=== PATIENT | male | born 1990 | race Caucasian/White ===

== ENCOUNTER 2021-04-02 11:15 | Emergency (ER) | payer MEDICAID, SELFPAY ==
[2021-04-02 11:37] VITALS: BP 117/66; PULSE 70; RESP 17; TEMP -12.4; TEMP 9.7; O2SAT 98; BMI 31.6
[2021-04-02 11:47] VITALS: BP 117/66; PULSE 70; RESP 17; TEMP 36.5; O2SAT 98
--- NOTE | 2021-04-02 12:14 | HMH.EDUTC ---
[facility] [place] Dis[place] Clinical Impression: Scrotal abscess Disposition: Home, Self-Care Condition on Discharge: Good Instructions: Boil Additional Instructions: Keep the affected area clean and dry. Follow up with your regular doctor. Take the antibiotics as directed and apply the topical antibiotics as directed. Apply warm wet compresses to the affected area three or four times per day. GO TO THE ER FOR ANY WORSENING SYMPTOMS Prescriptions: Sulfamethoxazole/Trimethoprim [Bactrim DS tablet] 1 each PO BID 10 Days #20 tab Transmission Status: Received by [facility] Mupirocin [Bactroban 2% Ointment 22gm tube] 1 applicatio TP TID 7 Days #1 tube Transmission Status: Received by [facility] cephALEXin [cephALEXin 500mg capsule] 500 mg PO Q6H 10 Days #40 cap Transmission Status: Received by [facility] Referrals: Simone Srinivasan APRN [Primary Care Provider] - Time of Disposition: 12:19 Medical Decision Making - Medical Records Medical records reviewed: No: I reviewed the patient's medical records. - Waldemar Inquiry Pt receiving controlled substance: No Vital Signs: 04/02/21 11:37 04/02/21 11:47 Temperature 9.7 F L 97.7 F Temperature Source Oral Oral Pulse Rate 70 Pulse Rate [Left] 70 Respiratory Rate 17 17 Blood Pressure 117/66 Blood Pressure [Right Arm] 117/66 Blood Pressure Mean [Right Arm] 83 02 Sat by Pulse Oximetry 98 [facility] [place] HPI - General Stated complaint: knot on male area Time Seen by Provider: 04/02/21 12:14 Mode of Arrival: Ambulatory Source of Information: Patient Limitations: No Limitations Description of Symptoms (Recalled from Triage Doc. by RN): Pt states that he has a knoe in the middle of his testicles for 2 week that hurts. HEENT Symptoms (Recalled from RN notes): No Resp Symptoms (Recalled from RN notes): No Skin Symptoms (Recalled from RN notes): Yes MS Symptoms (Recalled from RN notes): No Functional Status (Recalled from RN notes): wnl - History of Present Illness Provider Complaint: He states that for the past 1 week he has had a red swollen area on the skin of his scrotum. He states that the pain is tender to touch. - Related Data Previous Rx's Medication Instructions Recorded Mupirocin [Bactroban 2% Ointment 1 applicatio TP TID 7 Days #1 tube 04/02/21 22gm tube] Sulfamethoxazole/Trimethoprim 1 each PO BID 10 Days #20 tab 04/02/21 [Bactrim DS tablet] cephALEXin [cephALEXin 500mg 500 mg PO Q6H 10 Days #40 cap 04/02/21 capsule] Allergies Allergy/AdvReac Type Severity Reaction Status Date / Time Codeine Allergy Intermediate NA-NAUSEA/V Uncoded 10/30/17 15:27 OMITING PCN (penicillin) Allergy Intermediate I-RASH Uncoded 10/30/17 15:27 ASA (aspirin) Allergy Mild I-RASH Uncoded 04/02/21 11:42 - Worker's Comp Is this a Worker's Comp case?: No [facility] History - Hepatitis A Screen Drug use history?: No High risk sexual behaviors?: No History of sexually transmitted infection?: No Currently employed?: No Childcare worker?: No Do you have indoor plumbing?: Yes Do you have electricity?: Yes Attestation statement:: This patient has been screened for Hepatitis A risk factors. I have reviewed the patient's past medical history: Yes - Social History Smoking Status: Current every day smoker Tobacco Type: cigarettes # Packs/Day (cigarettes): 1 Alcohol Intake: never Occupational Status: other ROS Obtained: Yes All systems reviewed & no additional complaints - Constitutional Constitutional: Reports system reviewed and no additional complaints, except as docu, Denies chills, Denies fever(s) - Eyes Eyes: Denies blurry vision, Denies change in vision, Denies eye discharge - ENT Ears, Nose, Mouth, and Throat: Denies dizziness, Denies sore throat - Genitourinary Male Genitourinary: Reports as per HPI - Musculoskeletal Musculoskeletal: Denies back pain - Integumentary/Breasts Skin/Breast: Reports as per
== END 2021-04-02 12:30 | disposition home or self-care (01) ==
PROVIDERS: Emergency Provider Nurse Practitioner Family; PCP Nurse Practitioner Family
DX: N49.2 Inflammatory disorders of scrotum (principal); F17.210 Nicotine dependence, cigarettes, uncomplicated
CPT/HCPCS: 99202; G0463

== ENCOUNTER 2021-04-17 21:25 | Emergency (ER) | payer MEDICAID, SELFPAY ==
[2021-04-17 21:27] VITALS: BP 129/74; PULSE 82; RESP 17; TEMP 37.1; O2SAT 98; BMI 31.4
[2021-04-17 21:41] VITALS: BMI 31.4
--- NOTE | 2021-04-17 21:41 | XR_ITS ---
PROCEDURE INFORMATION: Exam: XR Chest Exam date and time: 04/17/2021 9:41 PM Age: 30 years old Clinical indication: Cough and shortness of breath and other: Congestion; Patient HX: Cough, congestion, SOA, smoker; Additional info: Cough, chest congestion TECHNIQUE: Imaging protocol: XR of the chest. Views: 2 views. COMPARISON: No relevant prior studies available. FINDINGS: Lungs: Unremarkable. No consolidation. Pleural spaces: Unremarkable. No pleural effusion. No pneumothorax. Heart/Mediastinum: Unremarkable. No cardiomegaly. Bones/joints: Unremarkable. IMPRESSION: No acute findings.
[2021-04-17 22:00] VITALS: BP 156/86; PULSE 82; O2SAT 96
--- NOTE | 2021-04-17 22:10 | HMH.EDURI ---
ED Disposition Clinical Impression: Bronchitis Disposition: Home, Self-Care Condition on Discharge: Good Instructions: DI for Acute Bronchitis Additional Instructions: use meds and see pcp for follow up about bp Prescriptions: predniSONE [Prednisone 20mg Tab] 20 mg PO BID #10 tab Transmission Status: Pending to [facility] Azithromycin [Zithromax 250mg tab] 250 mg PO DIRECTED #6 tab Transmission Status: Pending to [facility] Referrals: Simone Srinivasan APRN [Primary Care Provider] - - Critical Care Critical Care Time: No Attestation: On 04/17/21, the high probability of a clinically significant, sudden or life threatening deterioration of the following system(s) required my full and direct attention, intervention and personal management. The time I documented below is in addition to time spent performing reported procedures but includes the following listed in this critical care notation. Medical Decision Making - Medical Records Medical records reviewed: Yes: I reviewed the patient's medical records. - Waldemar Inquiry Pt receiving controlled substance: No Vital Signs: 04/17/21 21:27 Temperature 98.7 F Temperature Source Oral Pulse Rate [Right] 82 Respiratory Rate 17 Blood Pressure [Right Arm] 129/74 Blood Pressure Mean [Right Arm] 92 Blood Pressure Source [Right Arm] Automatic Cuff 02 Sat by Pulse Oximetry 98 Oxygen Delivery Method Room Air - Lab Data Lab results reviewed: Yes: I reviewed the patient's lab results. Lab Results 04/17/21 22:15: Group A Strep Rapid Negative Orders (Tests/Meds): ED MEDICATIONS Discontinued Medications Generic Name Dose Route Start Last Admin Trade Name Edilbertoq PRN Reason Stop Dose Admin Ceftriaxone Sodium 1 gm 04/17/21 22:53 04/17/21 22:57 Ceftriaxone 1gm Vial IM 04/17/21 22:54 1 gm ONCE ONE Administration Protocol Lidocaine HCl 0 ml 04/17/21 22:53 04/17/21 22:57 Lidocaine 1% 5ml Pf Vial IM 04/17/21 22:54 2.1 ml ONCE ONE Administration Methylprednisolone Sodium Succinate 125 mg 04/17/21 22:53 04/17/21 22:58 Methylprednisolone Sod Succ 125mg Vial IM 04/17/21 22:54 125 mg ONCE ONE Administration ORDERS Category Date Time Status Full Resp Panel w/COVID ([facility]) Routine Lab 04/17/21 22:15 Received Strep Screen Confirmation Stat Micro 04/17/21 22:15 Received - Radiology Data #1 Image(s): Chest Image Reviewed: Yes I reviewed the patient's radiology image Preliminary Findings: Normal/NAD Medical Decision Narrative: has sinus and bronchitis - will use meds and asked pt to see pcp about htn URI/Sore Throat HPI - General Chief Complaint: Upper Respiratory Infection Stated Complaint: drainage,congestion,cough Time Seen by Provider: 04/17/21 21:50 Mode of Arrival: Family Vehicle Source of Information: Patient, Spouse, Medical Record Limitations: No Limitations Description of Symptoms (Recalled from ER Triage Doc. by RN): Pt c/o non-productive cough, chest congestion, sore throat, sinus drainage, and malaise that began 2 days ago. Pt initally thought it was allergies and has been taking benadryl without relief and the chest congestion seemed to worsen. Denies any fever, N/V/D, or SOA. - History of Present Illness HPI Narrative: over the last 2 day [facility] cough and chest and sinus congestion - no hx of diabetes - has hx of htn - positive tob use MD Complaint: nasal congestion, sinus pain Onset (ago): day(s) Severity: moderate Relieving factors: OTC cold medicine Able to tolerate fluids by mouth: Yes Associated symptoms: sore throat Treatments prior to arrival: cold medicine - Related Data Previous Rx's Medication Instructions Recorded Mupirocin [Bactroban 2% Ointment 1 applicatio TP TID 7 Days #1 tube 04/02/21 22gm tube] Sulfamethoxazole/Trimethoprim 1 each PO BID 10 Days #20 tab 04/02/21 [Bactrim DS tablet] cephALEXin [cephALEXin 500mg 500 mg PO Q
[2021-04-17 22:22] LABS: Adenovirus,PCR Not Detected (NotDetected); Bordetella Pertussis Not Detected (NotDetected); Chlamydophila Pneumoniae, PCR Not Detected (NotDetected); Coronavirus 19, PCR Not Detected (NotDetected); Coronavirus 229E Not Detected (NotDetected); Coronavirus NL63 Not Detected (NotDetected); Coronavirus OC43 Not Detected (NotDetected); Coronovirus HKU1,PCR Not Detected (NotDetected); Human Metapneumovirus Not Detected (NotDetected); Influenza A, PCR Not Detected (NotDetected); Influenza AH1, 2009 Not Detected (NotDetected); Influenza AH1, PCR Not Detected (NotDetected); Influenza AH3,PCR Not Detected (NotDetected); Influenza B, PCR Not Detected (NotDetected); Mycoplasma Pneumoniae, PCR Not Detected (NotDetected); Parainfluenza 1, PCR Not Detected (NotDetected); Parainfluenza 2, PCR Not Detected (NotDetected); Parainfluenza 3, PCR Not Detected (NotDetected); Parainfluenza 4, PCR Not Detected (NotDetected); Respiratory Syncytial Virus Not Detected (NotDetected)
[2021-04-17 22:34] LABS: Strep Scrn Group A (Rapid) Negative (Negative)
[2021-04-17 23:33] VITALS: BP 104/82; PULSE 73; RESP 15; TEMP 36.6; O2SAT 97
[2021-04-18 00:13] LABS: Rhinovirus/Enterovirus Detected (NotDetected)
== END 2021-04-17 23:35 | disposition home or self-care (01) ==
PROVIDERS: Emergency Provider Emergency Medicine; PCP Nurse Practitioner Family
DX: J20.9 Acute bronchitis, unspecified (principal); F17.210 Nicotine dependence, cigarettes, uncomplicated; Z88.0 Allergy status to penicillin
CPT/HCPCS: 71046; 87430; 87581; 87633; 87798; 96372; 99283

== ENCOUNTER → 2021-04-19 15:02 | Outpatient (CLI) | payer MEDICAID, SELFPAY ==
[2021-04-19 17:17] LABS: Amphetamine/Metha Screen,Urine Negative ng/ml (<1000)
[2021-04-19 17:18] LABS: Barbiturates Screen,Urine Negative ng/ml (<200); Benzodiazepines Screen,Urine Negative ng/ml (<200)
[2021-04-19 17:19] LABS: Cannabinoid Screen,Urine Positive ng/ml (<50)
[2021-04-19 17:20] LABS: Cocaine Screen,Urine Negative ng/ml (<300); Methadone Screen,Urine Negative ng/ml (<300)
[2021-04-19 17:21] LABS: Opiate Screen,Urine Negative ng/ml (<300)
[2021-04-19 17:22] LABS: Phencyclidine Screen,Urine Negative ng/ml (<25)
== END ==
PROVIDERS: Visit Provider Nurse Practitioner Family
DX: G62.9 Polyneuropathy, unspecified (principal); M54.9 Dorsalgia, unspecified
CPT/HCPCS: 80305

== ENCOUNTER → 2021-05-17 18:16 | Outpatient (CLI) | payer MEDICAID, SELFPAY ==
[2021-05-17 18:27] LABS: Basophils # 0.1 K/mm3 (0-0.2); Basophils % 0.7 % (0.1-2.0); Eosinophils # 0.1 K/mm3 (0.0-0.4); Eosinophils % 0.8 % (0.1-12.0); Hematocrit 47.6 % (42.0-52.0); Hemoglobin 16.5 g/dL (14.1-18.0); Lymphocytes # 2.8 K/mm3 (0.7-4.5); Lymphocytes % 27.9 % (10-50); Mean Corpuscular HGB Conc 34.6 g/dL (31.8-35.4); Mean Corpuscular Hemoglobin 31.8 pg (27.0-31.2); Mean Corpuscular Volume 91.8 fl (80-94); Mean Platelet Volume 10.5 fl (7.4-10.4); Monocytes # 0.4 K/mm3 (0.1-1.0); Monocytes % 3.9 % (1.7-9.3); Neutrophils # 6.6 K/mm3 (1.8-7.8); Neutrophils % 66.7 % (37.0-80.0); Platelet Count 251 K/mm3 (142-424); Red Blood Count 5.18 M/mm3 (4.60-6.20); Red Cell Distribution Width 13.9 % (11.5-17.5); White Blood Count 9.9 K/mm3 (4.8-10.8)
[2021-05-17 20:18] LABS: Chloride 107 mmol/L (98-107); Potassium 4.3 mmoL/L (3.5-5.1); Sodium 140 mmol/L (136-145)
[2021-05-17 20:21] LABS: Alanine Aminotransferase 23 U/L (12-78); Albumin Level 4.3 g/dl (3.5-5.0); Albumin/Globulin Ratio 1.5 (1.1-1.8); Alkaline Phosphatase 96 U/L (38-126); Anion Gap 11.3 mEq/L (5-15); Aspartate Amino Transferase 27 U/L (17-59); Bilirubin,Total 0.5 mg/dl (0.2-1.3); Blood Urea Nitrogen 13 mg/dl (9-20); Calcium 9.3 mg/dl (8.4-10.2); Carbon Dioxide 26 mmol/L (22.0-30.0); Chol/HDL Ratio 4.4 (1-3.5); Cholesterol 177 mg/dl (140-200); Estimated Glomerular Filt Rate 87 ml/min (>60); GFR (African American) 105 ML/MIN (>60); Globulin 2.9 g/dL (1.3-3.2); Glucose 85 mg/dl (74-100); HDL Cholesterol 40 mg/dl (40-60); Total Protein,Serum 7.2 g/dl (6.3-8.2); Triglycerides 164 mg/dl (30-150); VLDL Cholesterol 33 mg/dL (0-40)
[2021-05-17 20:33] LABS: Direct LDL Cholesterol 120.37 mg/dL (100-129)
[2021-05-17 20:38] LABS: T4 (Thyroxine) 8.2 ug/dl (5.53-11.0)
[2021-05-17 20:54] LABS: Thyroid Stimulating Hormone 0.68 uIU/mL (0.465-4.68)
[2021-05-17 21:19] LABS: 25-OH Vitamin D, Total 31.1 ng/mL (30-100)
== END ==
PROVIDERS: Visit Provider Nurse Practitioner Family
DX: G62.9 Polyneuropathy, unspecified (principal); E66.3 Overweight; Z68.31 Body mass index [BMI] 31.0-31.9, adult; Z79.899 Other long term (current) drug therapy
CPT/HCPCS: 80053; 80061; 82306; 84436; 84443; 85025

== ENCOUNTER 2021-05-21 12:32 | Emergency (ER) | payer MEDICAID, SELFPAY ==
[2021-05-21 12:35] VITALS: BP 128/72; PULSE 72; RESP 21; TEMP 36.8; O2SAT 98; BMI 33.0
--- NOTE | 2021-05-21 12:59 | HMH.EDUTC ---
[facility] [place] Clinical Impression: Nausea & vomiting Qualifiers: Vomiting type: unspecified Vomiting Intractability: non-intractable Qualified Code(s): R11.2 - Nausea with vomiting, unspecified Diarrhea Qualifiers: Diarrhea type: unspecified type Qualified Code(s): R19.7 - Diarrhea, unspecified Disposition: Home, Self-Care Condition on Discharge: Good Instructions: Nausea and Vomiting-Adult, Diarrhea Additional Instructions: Monitor temperature. Seek treatment if fever develops. Follow-up immediately if new or worse symptoms worsen or no noticeable improvement over 48 hours. Increase fluids such as water, Gatorade, Powerade, juice or Pedialyte with limited formula/dietary in children No food is okay as long as you are drinking. Once ready to eat start bland such as bananas, rice, applesauce, toast. Contagious until no diarrhea, vomiting, fever times 48 hours without medication Avoid antidiarrheals unless told otherwise. Best to let the virus run its course. Follow-up immediately for new or worsening symptoms or no noticeable improvement over the next 48 hours. Prescriptions: Promethazine HCl [Promethegan] 12.5 mg RC Q8 PRN 3 Days #6 supp.rect PRN Reason: Nausea Transmission Status: Pending to [facility] Referrals: Simone Srinivasan APRN [Primary Care Provider] - Time of Disposition: 13:55 Medical Decision Making - Waldemar Inquiry Pt receiving controlled substance: No Vital Signs: 05/21/21 12:35 05/21/21 13:43 Temperature 98.2 F 98.2 F Temperature Source Oral Pulse Rate 72 Pulse Rate [Right Brachial] 72 Respiratory Rate 21 21 Blood Pressure 128/72 Blood Pressure [Right Arm] 128/72 Blood Pressure Mean [Right Arm] 90 Blood Pressure Source [Right Arm] Automatic Cuff Blood Pressure Position [Right Arm] Sitting 02 Sat by Pulse Oximetry 98 Oxygen Delivery Method Room Air Orders (Tests/Meds): ED MEDICATIONS Discontinued Medications Generic Name Dose Route Start Last Admin Trade Name Freq PRN Reason Stop Dose Admin Promethazine HCl 12.5 mg 05/21/21 12:59 05/21/21 13:00 Promethazine Hcl 25mg/Ml 1ml Vial IM 05/21/21 13:00 12.5 mg ONCE ONE Administration Medical Decision Narrative: pt refused iv fluids and labs [facility] [place]PI - General Chief complaint: [facility] Stated complaint: N/V macario Time Seen by Provider: 05/21/21 12:59 Mode of Arrival: Ambulatory Source of Information: Patient Limitations: No Limitations Description of Symptoms (Recalled from Triage Doc. by RN): PATIENT C/O VOMITING AND DIARRHEA SINCE 0300 THIS AM HEENT Symptoms (Recalled from RN notes): No Resp Symptoms (Recalled from RN notes): No Skin Symptoms (Recalled from RN notes): No MS Symptoms (Recalled from RN notes): No Functional Status (Recalled from RN notes): WNL - History of Present Illness Provider Complaint: 30 yr old male presents for n/v/d since 3 am. pt states no ill family or no eating out recently. pt denies fever. - Related Data Previous Rx's Medication Instructions Recorded albuterol sulfate 1.25 mg/3 mL 1.25 mg INHALATION QID PRN #75 ml 04/19/21 solution for nebulization albuterol sulfate 90 mcg/actuation 2 puff INHALATION Q4-6H PRN #8.5 g 04/19/21 aerosol inhaler blood sugar diagnostic See Rx Instructions .ROUTE 04/19/21 .MEDSUPPLY #100 each blood-glucose meter See Rx Instructions .ROUTE 04/19/21 .MEDSUPPLY #1 each fluticasone 250 mcg-salmeterol 50 1 inh INHALATION BID #60 each 04/19/21 mcg/dose blistr powdr for inhalation hydrochlorothiazide 25 mg tablet 25 mg PO DAILY #30 tab 04/19/21 lancets 30 gauge and blood glucose See Rx Instructions .ROUTE 04/19/21 strips combo pack .MEDSUPPLY #50 each loratadine 10 mg tablet 10 mg PO DAILY PRN #30 tab 04/19/21 gabapentin 100 mg capsule 100 mg PO TID 30 Days #90 cap 05/17/21 lidocaine HCl 4 % topical patch 1 patch TOPICAL BID PRN #30 each 05/17/21 Promethazine HCl [Promethegan] 12.5 mg RC Q8 PRN 3 Days #6
[2021-05-21 13:43] VITALS: BP 128/72; PULSE 72; RESP 21; TEMP 36.8; O2SAT 98
== END 2021-05-21 14:00 | disposition home or self-care (01) ==
PROVIDERS: Emergency Provider Nurse Practitioner Family; PCP Nurse Practitioner Family
DX: R11.2 Nausea with vomiting, unspecified (principal); R19.7 Diarrhea, unspecified; I10 Essential (primary) hypertension; J45.909 Unspecified asthma, uncomplicated; Z88.0 Allergy status to penicillin
CPT/HCPCS: 96372; 99202; G0463

== ENCOUNTER 2021-05-23 00:49 | Emergency (ER) | payer MEDICAID, SELFPAY ==
[2021-05-23 00:51] VITALS: BP 113/66; PULSE 87; RESP 20; TEMP 37.1; O2SAT 97; BMI 31.6
--- NOTE | 2021-05-23 01:03 | ECG_ITS ---
APPROVED REPORT Exam: Resting ECG HR:80 bpm ECG Measurements Heart Rate 80 AXES KS 130 P 43 QRSd 98 QRS 33 QT 392 T 42 QTc 452 Conclusion Normal sinus rhythm Normal ECG Electronically signed by : Shun Montaño, 05/25/2021 21:43:04
[2021-05-23 01:11] VITALS: BP 113/66; PULSE 84; O2SAT 96
--- NOTE | 2021-05-23 01:14 | XR_ITS ---
PROCEDURE INFORMATION: Exam: XR Chest Exam date and time: 05/23/2021 1:14 AM Age: 30 years old Clinical indication: Shortness of breath; Sternal or substernal pain; Patient HX: SOA and some chest pain since receiving last covid shot last week TECHNIQUE: Imaging protocol: XR of the chest. Views: 2 views. COMPARISON: CR XR CHEST 2V 04/17/2021 9:36 PM FINDINGS: Lungs: Unremarkable. No consolidation. Pleural spaces: No pleural effusion. No pneumothorax. Heart/Mediastinum: Normal heart size. Bones/joints: Unremarkable. IMPRESSION: No acute findings.
[2021-05-23 01:25] VITALS: PULSE 83
[2021-05-23 01:26] VITALS: PULSE 81
[2021-05-23 01:31] VITALS: BP 116/59; PULSE 72; O2SAT 95
[2021-05-23 01:36] LABS: Basophils % 0.2 % (0.1-2.0); Eosinophils # 0.1 K/mm3 (0.0-0.4); Eosinophils % 0.3 % (0.1-12.0); Hematocrit 44.4 % (42.0-52.0); Hemoglobin 15.6 g/dL (14.1-18.0); Lymphocytes # 1.3 K/mm3 (0.7-4.5); Mean Corpuscular HGB Conc 35.1 g/dL (31.8-35.4); Mean Corpuscular Hemoglobin 31.6 pg (27.0-31.2); Mean Platelet Volume 8.8 fl (7.4-10.4); Monocytes # 0.5 K/mm3 (0.1-1.0); Monocytes % 3.3 % (1.7-9.3); Neutrophils # 13.9 K/mm3 (1.8-7.8); Neutrophils % 88.2 % (37.0-80.0); Platelet Count 237 K/mm3 (142-424); Red Blood Count 4.93 M/mm3 (4.60-6.20); Red Cell Distribution Width 13.7 % (11.5-17.5); White Blood Count 15.8 K/mm3 (4.8-10.8)
[2021-05-23 01:41] LABS: Alanine Aminotransferase 26 U/L (12-78); Albumin Level 4.1 g/dl (3.5-5.0); Albumin/Globulin Ratio 1.4 (1.1-1.8); Alkaline Phosphatase 90 U/L (38-126); Anion Gap 13.6 mEq/L (5-15); Aspartate Amino Transferase 25 U/L (17-59); Bilirubin,Total 0.4 mg/dl (0.2-1.3); Blood Urea Nitrogen 11 mg/dl (9-20); Calcium 8.7 mg/dl (8.4-10.2); Carbon Dioxide 25 mmol/L (22.0-30.0); Chloride 101 mmol/L (98-107); Creatinine Clearance Estimated 172 mL/min (50-200); Estimated Glomerular Filt Rate 98 ml/min (>60); GFR (African American) 118 ML/MIN (>60); Glucose 148 mg/dl (74-100); MANUAL DIFFERENTIAL MANUAL DIFFERENTIAL (MANUAL DIFF); Potassium 3.6 mmoL/L (3.5-5.1); Sodium 136 mmol/L (136-145); Total Protein,Serum 7.1 g/dl (6.3-8.2)
[2021-05-23 01:46] LABS: C-Reactive Protein 29.3 mg/L (0-4)
[2021-05-23 01:59] LABS: Procalcitonin 0.141 ng/mL (0.0-2.0)
[2021-05-23 02:01] LABS: Lymphocytes % 6 % (10-50); Monocytes % 1 % (2-9); Neutrophils % 89 % (42-76); Platelet Estimate Normal; RBC Morphology Normal; Total Cells Counted 100
[2021-05-23 02:02] LABS: Erythrocyte Sedimentation Rate 16 mm/hr (0-15)
[2021-05-23 02:09] LABS: Lactic Acid 2.9 mmol/L (0.7-2.1)
--- NOTE | 2021-05-23 02:09 | ECG_ITS ---
APPROVED REPORT Exam: Resting ECG HR:101 bpm ECG Measurements Heart Rate 101 AXES KS 134 P 60 QRSd 100 QRS 33 QT 380 T 51 QTc 492 Conclusion Sinus tachycardia Nonspecific T wave abnormality Abnormal ECG Electronically signed by : Shun Montaño, 05/25/2021 21:42:53
--- NOTE | 2021-05-23 03:52 | CT_ITS ---
PROCEDURE INFORMATION: Exam: CTA Chest With Contrast Exam date and time: 05/23/2021 3:52 AM Age: 30 years old Clinical indication: Shortness of breath; Patient HX: SOA and chest pain in the center of his chest since receiving his second dose of the covid shot last week, smoker TECHNIQUE: Imaging protocol: Computed tomographic angiography of the chest with contrast. 3D rendering (Not supervised by radiologist): MIP and/or 3D reconstructed images were created by the technologist. Radiation optimization: All CT scans at this facility use at least one of these dose optimization techniques: automated exposure control; mA and/or kV adjustment per patient size (includes targeted exams where dose is matched to clinical indication); or iterative reconstruction. Contrast material: ISO 370; Contrast volume: 70 ml; Contrast route: INTRAVENOUS (IV); COMPARISON: CR XR CHEST 2V 05/23/2021 1:14 AM FINDINGS: Pulmonary arteries: No pulmonary embolus. Aorta: The normal caliber of the thoracic aorta. No dissection. Lungs: Minimal dependent atelectasis. No consolidation or evidence of pneumonia. Calcified granuloma in the right lower lobe. Pleural spaces: Unremarkable. No pneumothorax. No pleural effusion. Heart: Normal heart size. Trace pericardial fluid without significant effusion. Lymph nodes: Calcified bilateral hilar lymph nodes. No enlarged mediastinal lymph nodes. There is a mildly enlarged left axillary lymph node measuring 1.1 cm in short axis, most likely reactive. Spleen: Spleen is mildly enlarged, measuring 13.7 cm in AP dimension. Bones/joints: Unremarkable. No acute fracture. Soft tissues: Unremarkable. IMPRESSION: 1. No evidence of pulmonary embolus. 2. No pneumonia. 3. Mild nonspecific splenomegaly. Probably reactive mildly enlarged left axillary lymph node.
--- NOTE | 2021-05-23 04:49 | HMH.EDSOB ---
ED Disposition Clinical Impression: Pleurisy Disposition: Left Against Medical Advice Condition on Discharge: Good Instructions: DI for Pleurisy Additional Instructions: fluids and see pcp and use meds Prescriptions: predniSONE [Prednisone 20mg Tab] 20 mg PO BID #10 tab Transmission Status: Pending to [facility] Benzonatate [Tessalon Perle 100mg Cap] 100 mg PO TID #30 cap Transmission Status: Pending to [facility] Azithromycin [Zithromax 250mg tab] 250 mg PO DIRECTED #6 tab Transmission Status: Pending to [facility] Referrals: Simone Srinivasan APRN [Primary Care Provider] - - Critical Care Critical Care Time: No Attestation: On 05/23/21, the high probability of a clinically significant, sudden or life threatening deterioration of the following system(s) required my full and direct attention, intervention and personal management. The time I documented below is in addition to time spent performing reported procedures but includes the following listed in this critical care notation. Medical Decision Making - Medical Records Medical records reviewed: Yes: I reviewed the patient's medical records. - Waldemar Inquiry Pt receiving controlled substance: No Vital Signs: 05/23/21 00:51 05/23/21 01:11 05/23/21 01:25 Temperature 98.7 F Temperature Source Oral Pulse Rate 84 83 Pulse Rate [Right] 87 Respiratory Rate 20 Blood Pressure 113/66 Blood Pressure [Right Arm] 113/66 Blood Pressure Mean [Right Arm] 81 02 Sat by Pulse Oximetry 97 96 Oxygen Delivery Method 05/23/21 01:26 05/23/21 01:31 05/23/21 04:57 Temperature 98.7 F Temperature Source Pulse Rate 81 72 74 Pulse Rate [Right] Respiratory Rate 16 Blood Pressure 116/59 L 120/79 Blood Pressure [Right Arm] Blood Pressure Mean [Right Arm] 02 Sat by Pulse Oximetry 95 Oxygen Delivery Method Room Air - Lab Data Lab results reviewed: Yes: I reviewed the patient's lab results. Lab Results 05/23/21 01:20: WBC 15.8 H, RBC 4.93, Hgb 15.6, Hct 44.4, MCV 90.0, MCH 31.6 H, MCHC 35.1, RDW 13.7, Plt Count 237, MPV 8.8, Neut % (Auto) 88.2 H, Lymph % (Auto) 8.0 L, [place] % (Auto) 3.3, Eos % (Auto) 0.3, Baso % (Auto) 0.2, Neut # (Auto) 13.9 H, Lymph # (Auto) 1.3, [place] # (Auto) 0.5, Eos # (Auto) 0.1, Baso # (Auto) 0.0, Total Counted 100, Neutrophils % (Manual) 89 H, Band Neutrophils % 4.0, Lymphocytes % (Manual) 6 L, Monocytes % (Manual) 1 L, Platelet Estimate Normal, RBC Morphology Normal, ESR 16 H 05/23/21 01:20: Sodium 136, Potassium 3.6, Chloride 101, Carbon Dioxide 25, Anion Gap 13.6, BUN 11, Creatinine 0.90, Estimated Creat Clear 172, Estimated GFR 98, Est GFR ( Amer) 118, Glucose 148 H, Calcium 8.7, Total Bilirubin 0.4, AST 25, ALT 26, Alkaline Phosphatase 90, C-Reactive Protein 29.3 H, Total Protein 7.1, Albumin 4.1, Globulin 3.0, Albumin/Globulin Ratio 1.4 05/23/21 01:20: Procalcitonin 0.141 05/23/21 01:20: Lactate 2.9 H Result diagrams: 05/23/21 01:20 05/23/21 01:20 Orders (Tests/Meds): ED MEDICATIONS Generic Name Dose Route Start Last Admin Trade Name Freq PRN Reason Stop Dose Admin Sodium Chloride 1,000 mls @ 999 mls/hr 05/23/21 01:15 05/23/21 01:22 Sod Chlor 0.9% 1000ml Bag IV 05/23/21 02:15 999 mls/hr .Q1H1M KWAN Administration Discontinued Medications Generic Name Dose Route Start Last Admin Trade Name Freq PRN Reason Stop Dose Admin Albuterol/Ipratropium 3 ml 05/23/21 01:14 05/23/21 01:25 Ipratropium/Albuterol 3 Ml Neb IH 05/23/21 01:15 3 ml ONCE ONE Administration Iopamidol 70 ml 05/23/21 04:13 05/23/21 04:14 Iopamidol-370 (76%);100ml Bottle IV 05/23/21 04:14 70 ml ONCE ONE Administration Ketorolac Tromethamine 30 mg 05/23/21 01:14 05/23/21 01:22 Ketorolac 30mg/Ml Vial IV 05/23/21 01:15 30 mg ONCE ONE Administration Methylprednisolone Sodium Succinate 125 mg 05/23/21 01:14 05/23/21 01:22 Methylprednisol
--- NOTE | 2021-05-23 04:56 | PC.NURSE ---
pt refused covid and full rep panel and signed out AMA
[2021-05-23 04:57] VITALS: BP 120/79; PULSE 74; RESP 16; TEMP 37.1; O2SAT 95
[2021-05-23 05:48] LABS: Reflex Lactic Add Lactic Reflex
== END 2021-05-23 05:09 | disposition left against medical advice (07) ==
PROVIDERS: Emergency Provider Emergency Medicine; PCP Nurse Practitioner Family
DX: R09.1 Pleurisy (principal); F17.210 Nicotine dependence, cigarettes, uncomplicated
CPT/HCPCS: 71046; 71275; 80053; 83605; 84145; 85007; 85025; 85651; 86140; 87040; 93005; 96365; 96375; 99283; Q9967

== ENCOUNTER 2021-07-08 11:39 | Emergency (ER) | payer MEDICAID, SELFPAY ==
[2021-07-08 12:40] VITALS: BP 124/82; PULSE 84; RESP 18; TEMP 36.7; O2SAT 99; BMI 30.4
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
[2021-07-08 14:29] VITALS: BP 124/82; PULSE 84; RESP 18; TEMP 36.7; O2SAT 99
== END 2021-07-08 14:30 | disposition home or self-care (01) ==
PROVIDERS: Emergency Provider Nurse Practitioner Family; PCP Nurse Practitioner Family
DX: B34.9 Viral infection, unspecified (principal); Z20.822 Contact with and (suspected) exposure to COVID-19; J45.901 Unspecified asthma with (acute) exacerbation; S50.11XA Contusion of right forearm, initial encounter
CPT/HCPCS: 73090; 99202; G0463

== ENCOUNTER 2021-07-24 14:54 | Emergency (ER) | payer MEDICAID, SELFPAY ==
[2021-07-24 14:55] VITALS: BP 149/87; PULSE 73; RESP 18; TEMP 36.7; O2SAT 98; BMI 25.1
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
[2021-07-24 16:15] VITALS: BP 115/72; PULSE 67; O2SAT 98
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
[2021-07-24 16:45] VITALS: BP 115/72; PULSE 65; O2SAT 100
[2021-07-24 17:00] VITALS: BP 115/72; PULSE 65; RESP 18; TEMP 36.7; O2SAT 100
== END 2021-07-24 17:09 | disposition home or self-care (01) ==
PROVIDERS: Emergency Provider Emergency Medicine; PCP Nurse Practitioner Family
DX: S00.83XA Contusion of other part of head, initial encounter (principal); S46.911A Strain of unspecified muscle, fascia and tendon at shoulder and upper arm level, right arm, initial encounter; S80.02XA Contusion of left knee, initial encounter; V43.63XA Car passenger injured in collision with pick-up truck in traffic accident, initial encounter; Y92.413 State road as the place of occurrence of the external cause
CPT/HCPCS: 70450; 71045; 72125; 73070; 73502; 73560; 99282

== ENCOUNTER 2021-07-25 16:19 | Emergency (ER) | payer MEDICAID, SELFPAY ==
[2021-07-25 16:20] VITALS: BP 118/80; PULSE 63; RESP 18; TEMP 36.4; O2SAT 96; BMI 31.4
[2021-07-25 16:28] VITALS: BMI 31.4
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
--- NOTE | 2021-07-25 16:29 | PC.NURSE ---
Went out and assessed pt and he complained of worsening headache since yesterday. Advises he has been getting dizzy and breaking out in a sweat;. Pt stable at this time sitting in w/c. Repeat head CT ordered and rad notified.
[2021-07-25 17:31] VITALS: BP 118/80; PULSE 62; O2SAT 98
[2021-07-25 18:01] VITALS: BP 117/74; PULSE 58; O2SAT 96
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
[2021-07-25 18:31] VITALS: BP 123/82; PULSE 61; O2SAT 100
[2021-07-25 19:04] VITALS: BP 123/82; PULSE 61; RESP 18; TEMP 36.4; O2SAT 98
== END 2021-07-25 19:05 | disposition home or self-care (01) ==
PROVIDERS: Emergency Provider Family Medicine; PCP Nurse Practitioner Family
DX: S06.0X0D Concussion without loss of consciousness, subsequent encounter (principal); R42 Dizziness and giddiness
CPT/HCPCS: 70450; 99282

== ENCOUNTER → 2021-07-26 19:04 | Outpatient (CLI) | payer MEDICAID, SELFPAY ==
[2021-07-26 20:33] LABS: Amphetamine/Metha Screen,Urine Negative ng/ml (<1000); Benzodiazepines Screen,Urine Negative ng/ml (<200)
[2021-07-26 20:34] LABS: Barbiturates Screen,Urine Negative ng/ml (<200)
[2021-07-26 20:35] LABS: Cannabinoid Screen,Urine Positive ng/ml (<50); Cocaine Screen,Urine Negative ng/ml (<300)
[2021-07-26 20:36] LABS: Methadone Screen,Urine Negative ng/ml (<300)
[2021-07-26 20:37] LABS: Opiate Screen,Urine Positive ng/ml (<300); Phencyclidine Screen,Urine Negative ng/ml (<25)
== END ==
PROVIDERS: Visit Provider Nurse Practitioner Family
DX: M54.9 Dorsalgia, unspecified (principal); S00.83XA Contusion of other part of head, initial encounter; S06.0X9A Concussion with loss of consciousness of unspecified duration, initial encounter; S46.911A Strain of unspecified muscle, fascia and tendon at shoulder and upper arm level, right arm, initial encounter; S80.02XA Contusion of left knee, initial encounter
CPT/HCPCS: 80305

== ENCOUNTER → 2021-09-01 16:39 | Outpatient (CLI) | payer MEDICAID, SELFPAY | PROVIDERS: Visit Provider Nurse Practitioner | DX: Z20.822 Contact with and (suspected) exposure to COVID-19 (principal) | CPT/HCPCS: C9803; U0003; U0005 ==

== ENCOUNTER 2021-09-07 21:15 | Emergency (ER) | payer MEDICAID, SELFPAY ==
[2021-09-07 21:17] VITALS: BP 120/70; PULSE 84; RESP 16; TEMP 37.2; O2SAT 97; BMI 31.4
[2021-09-07 21:39] LABS: Coronavirus 19, PCR Not Detected (NotDetected); Influenza A, PCR Not Detected (NotDetected); Influenza B, PCR Not Detected (NotDetected)
--- NOTE | 2021-09-07 21:40 | XR_ITS ---
PROCEDURE INFORMATION: Exam: XR Chest Exam date and time: 09/07/2021 9:40 PM Age: 30 years old Clinical indication: Patient HX: Sore throat per patient. ; Additional info: Cough' TECHNIQUE: Imaging protocol: XR of the chest. Views: 2 views. COMPARISON: CR XR CHEST PORTABLE 07/24/2021 3:43 PM FINDINGS: Lungs: Subtle interstitial haziness could reflect interstitial pneumonia. No consolidation. Pleural spaces: Unremarkable. No pleural effusion. No pneumothorax. Heart/Mediastinum: Unremarkable. No cardiomegaly. Bones/joints: Unremarkable. IMPRESSION: Subtle interstitial haziness could reflect interstitial pneumonia.
--- NOTE | 2021-09-07 21:50 | HMH.EDURI ---
ED Disposition Clinical Impression: Pharyngitis Qualifiers: Pharyngitis/tonsillitis etiology: unspecified etiology Qualified Code(s): J02.9 - Acute pharyngitis, unspecified Disposition: Home, Self-Care Condition on Discharge: Good Instructions: DI for Pharyngitis/Tonsillopharyngitis -- Adult Additional Instructions: use meds and gargle and change tooth brush - call pcp for follow up Prescriptions: predniSONE [Prednisone 20mg Tab] 20 mg PO BID #10 tab Transmission Status: Pending to [facility] Azithromycin [Zithromax 250mg tab] 250 mg PO DIRECTED #6 tab Transmission Status: Pending to [facility] Referrals: Simone Srinivasan APRN [Primary Care Provider] - - Critical Care Critical Care Time: No Attestation: On 09/07/21, the high probability of a clinically significant, sudden or life threatening deterioration of the following system(s) required my full and direct attention, intervention and personal management. The time I documented below is in addition to time spent performing reported procedures but includes the following listed in this critical care notation. Medical Decision Making - Medical Records Medical records reviewed: Yes: I reviewed the patient's medical records. - Waldemar Inquiry Pt receiving controlled substance: No Vital Signs: 09/07/21 21:17 Temperature 98.9 F Temperature Source Oral Pulse Rate [Left] 84 Respiratory Rate 16 Blood Pressure [Right Arm] 120/70 Blood Pressure Mean [Right Arm] 86 02 Sat by Pulse Oximetry 97 Oxygen Delivery Method Room Air - Lab Data Lab results reviewed: Yes: I reviewed the patient's lab results. Lab Results 09/07/21 21:30: Group A Strep Rapid Negative Orders (Tests/Meds): ORDERS Category Date Time Status Chest XR 2 view (NOT portable) [XR chest 2V] Stat Exams 09/07/21 21:40 Taken Rapid PCR Covid and Flu A/B Stat Lab 09/07/21 21:26 Received Strep Screen Confirmation Stat Micro 09/07/21 21:30 Received - Radiology Data #1 Image(s): Chest Image Reviewed: Yes I reviewed the patient's radiology image Preliminary Findings: Normal/NAD Medical Decision Narrative: use meds and see pcp for follow up URI/Sore Throat HPI - General Chief Complaint: Upper Respiratory Infection Stated Complaint: SICK--SORE THROAT.,EAR Time Seen by Provider: 09/07/21 21:30 Mode of Arrival: Ambulatory Source of Information: Patient, Medical Record Limitations: No Limitations Description of Symptoms (Recalled from ER Triage Doc. by RN): sore throat and feeling congested - History of Present Illness HPI Narrative: sore throat with no rash - started yesterday - uses tob Complaint: sore throat, nasal congestion Onset (ago): day(s) Severity: moderate Able to tolerate fluids by mouth: Yes Associated symptoms: denies other symptoms Treatments prior to arrival: acetaminophen, ibuprofen - Related Data Previous Rx's Medication Instructions Recorded albuterol sulfate 1.25 mg/3 mL 1.25 mg INHALATION QID PRN #75 ml 04/19/21 solution for nebulization albuterol sulfate 90 mcg/actuation 2 puff INHALATION Q4-6H PRN #8.5 g 04/19/21 aerosol inhaler blood sugar diagnostic See Rx Instructions .ROUTE 04/19/21 .MEDSUPPLY #100 each blood-glucose meter See Rx Instructions .ROUTE 04/19/21 .MEDSUPPLY #1 each hydrochlorothiazide 25 mg tablet 25 mg PO DAILY #30 tab 04/19/21 lancets 30 gauge and blood glucose See Rx Instructions .ROUTE 04/19/21 strips combo pack .MEDSUPPLY #50 each lidocaine HCl 4 % topical patch 1 patch TOPICAL BID PRN #30 each 05/17/21 fluticasone 250 mcg-salmeterol 50 1 inh INHALATION BID #60 each 06/22/21 mcg/dose blistr powdr for inhalation loratadine 10 mg tablet 10 mg PO DAILY PRN #30 tab 06/22/21 Albuterol Sulfate [Albuterol 2.5 mg IH Q6HP PRN 30 Days #120 ml 07/08/21 Sulfate 2.5mg/0.5ml Neb] Ondansetron [Zofran 4mg ODT] 4 mg PO TIDP PRN #10 tab 07/25/21 cyclobenzaprine 10 mg tablet 10 mg PO
[2021-09-07 21:56] LABS: Strep Scrn Group A (Rapid) Negative (Negative)
[2021-09-07 22:17] VITALS: BP 128/79; PULSE 77; RESP 16; TEMP 37.2; O2SAT 97
== END 2021-09-07 22:20 | disposition home or self-care (01) ==
PROVIDERS: Emergency Provider Emergency Medicine; PCP Nurse Practitioner Family
DX: J02.9 Acute pharyngitis, unspecified (principal); J45.909 Unspecified asthma, uncomplicated; I10 Essential (primary) hypertension; Z20.822 Contact with and (suspected) exposure to COVID-19
CPT/HCPCS: 71046; 87430; 99282; C9803; U0003; U0005

== ENCOUNTER 2021-09-20 00:31 | Emergency (ER) | payer MEDICAID, SELFPAY ==
[2021-09-20 00:32] VITALS: BP 132/92; PULSE 71; RESP 20; TEMP 36.6; O2SAT 99; BMI 31.4
--- NOTE | 2021-09-20 00:57 | XR_ITS ---
PROCEDURE INFORMATION: Exam: XR Chest Exam date and time: 09/20/2021 12:57 AM Age: 30 years old Clinical indication: Smoker's cough; Additional info: Cough, congestion TECHNIQUE: Imaging protocol: XR of the chest. Views: 2 views. COMPARISON: CR XR CHEST 2V 09/07/2021 9:37 PM FINDINGS: Lungs: Again noted is some minimal increased interstitial opacities bilaterally without focal airspace consolidation or pleural effusion. Pleural spaces: See Lungs finding. Heart/Mediastinum: Cardiac mediastinal silhouette is stable with no change in pulmonary vascularity. Bones/joints: Unremarkable. IMPRESSION: Continued mild interstitial opacities without focal airspace consolidation, pleural effusion or pneumothorax.
[2021-09-20 01:01] VITALS: BP 124/79; PULSE 69; O2SAT 98
[2021-09-20 01:05] LABS: Coronavirus 19, PCR Not Detected (NotDetected); Influenza A, PCR Not Detected (NotDetected); Influenza B, PCR Not Detected (NotDetected); Microscopic, Urine URINE MICROSCOPIC (MICROSCOPIC)
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
[2021-09-20 01:11] LABS: Basophils # 0.2 K/mm3 (0-0.2); Basophils % 1.3 % (0.1-2.0); Eosinophils # 0.2 K/mm3 (0.0-0.4); Eosinophils % 1.6 % (0.1-12.0); Hematocrit 51.8 % (42.0-52.0); Hemoglobin 17.4 g/dL (14.1-18.0); Lymphocytes % 34.9 % (10-50); Mean Corpuscular HGB Conc 33.5 g/dL (31.8-35.4); Mean Corpuscular Hemoglobin 32.3 pg (27.0-31.2); Mean Corpuscular Volume 96.6 fl (80-94); Mean Platelet Volume 9.9 fl (7.4-10.4); Monocytes # 0.6 K/mm3 (0.1-1.0); Monocytes % 4.8 % (1.7-9.3); Neutrophils # 6.5 K/mm3 (1.8-7.8); Neutrophils % 57.3 % (37.0-80.0); Platelet Count 257 K/mm3 (142-424); Red Blood Count 5.37 M/mm3 (4.60-6.20); White Blood Count 11.4 K/mm3 (4.8-10.8)
[2021-09-20 01:16] LABS: Chloride 102 mmol/L (98-107)
[2021-09-20 01:17] LABS: Potassium 3.8 mmoL/L (3.5-5.1); Sodium 139 mmol/L (136-145)
[2021-09-20 01:19] LABS: Alanine Aminotransferase 20 U/L (12-78); Aspartate Amino Transferase 25 U/L (17-59); Blood Urea Nitrogen 10 mg/dl (9-20); Creatinine Clearance Estimated 191 mL/min (50-200); Estimated Glomerular Filt Rate 112 ml/min (>60); GFR (African American) 136 ML/MIN (>60)
[2021-09-20 01:20] LABS: Albumin/Globulin Ratio 1.4 (1.1-1.8); Alkaline Phosphatase 97 U/L (38-126); Anion Gap 10.8 mEq/L (5-15); Bilirubin,Total 0.2 mg/dl (0.2-1.3); Calcium 8.9 mg/dl (8.4-10.2); Carbon Dioxide 30 mmol/L (22.0-30.0); Globulin 2.9 g/dL (1.3-3.2); Glucose 113 mg/dl (74-100); Magnesium 2.1 mg/dl (1.6-2.3); Total Protein,Serum 6.9 g/dl (6.3-8.2)
[2021-09-20 01:22] LABS: Appearance,Urine CLEAR (Clear); Bilirubin,Urine Negative (Negative); Blood, Urine Negative (Negative); Color,Urine YELLOW (Yellow); Glucose,Urine (UA) Negative (Negative); Ketones,Urine Negative (Negative); Leukocyte Esterase,Urine Negative (Negative); Nitrate,Urine Negative (Negative); PH,Urine 6.5 (5.0-8.5); Protein,Urine Negative (Negative); Specific Gravity, Urine 1.025 (1.005-1.030); Urobilinogen,Urine 0.2 EU/dl (0.2)
[2021-09-20 01:25] LABS: C-Reactive Protein 1.3 mg/L (0-4)
[2021-09-20 01:30] VITALS: BP 126/75; PULSE 63; O2SAT 96
[2021-09-20 01:56] LABS: Troponin I < 0.01 ng/ml (0.00-0.034)
[2021-09-20 01:58] LABS: Bacteria,Urine Trace /lpf; WBC,Urine Occasional #/hpf (0-3)
[2021-09-20 02:00] LABS: Erythrocyte Sedimentation Rate 5 mm/hr (0-15); Procalcitonin 0.043 ng/mL (0.0-2.0)
--- NOTE | 2021-09-20 02:12 | PC.NURSE ---
called supervisor decorating for bed assignment
[2021-09-20 02:37] VITALS: BP 129/78; PULSE 69; RESP 18; TEMP 36.7; O2SAT 100
== END 2021-09-20 02:44 | disposition home or self-care (01) ==
PROVIDERS: Emergency Provider Emergency Medicine; PCP Nurse Practitioner Family
DX: J45.41 Moderate persistent asthma with (acute) exacerbation (principal); I10 Essential (primary) hypertension; Z20.822 Contact with and (suspected) exposure to COVID-19; F17.210 Nicotine dependence, cigarettes, uncomplicated
CPT/HCPCS: 71046; 80053; 81001; 83735; 84145; 84484; 85025; 85651; 86140; 96365; 99283; C9803; U0003; U0005

== ENCOUNTER 2021-11-18 22:39 | Emergency (ER) | payer MEDICAID, SELFPAY ==
[2021-11-18 22:41] VITALS: BP 143/94; PULSE 81; RESP 16; TEMP 36.9; O2SAT 98; BMI 29.1
[2021-11-18 22:48] VITALS: BMI 28.7
[2021-11-18 23:04] LABS: Coronavirus 19, PCR Not Detected (NotDetected); Influenza A, PCR Not Detected (NotDetected); Influenza B, PCR Not Detected (NotDetected)
[2021-11-18 23:15] LABS: Lactic Acid 1.4 mmol/L (0.7-2.1)
[2021-11-18 23:16] LABS: Alanine Aminotransferase 18 U/L (12-78); Albumin Level 4.4 g/dl (3.5-5.0); Albumin/Globulin Ratio 1.3 (1.1-1.8); Alkaline Phosphatase 93 U/L (38-126); Anion Gap 7.7 mEq/L (5-15); Aspartate Amino Transferase 22 U/L (17-59); Bilirubin,Total 0.5 mg/dl (0.2-1.3); Blood Urea Nitrogen 8 mg/dl (9-20); Calcium 9.5 mg/dl (8.4-10.2); Carbon Dioxide 36 mmol/L (22.0-30.0); Chloride 98 mmol/L (98-107); Creatinine Clearance Estimated 136 mL/min (50-200); Estimated Glomerular Filt Rate 87 ml/min (>60); GFR (African American) 105 ML/MIN (>60); Globulin 3.3 g/dL (1.3-3.2); Glucose 97 mg/dl (74-100); Potassium 3.7 mmoL/L (3.5-5.1); Sodium 138 mmol/L (136-145); Total Protein,Serum 7.7 g/dl (6.3-8.2)
[2021-11-18 23:21] LABS: C-Reactive Protein 32.2 mg/L (0-4)
--- NOTE | 2021-11-18 23:31 | PC.NURSE ---
pt refuses to give urine sample
--- NOTE | 2021-11-18 23:35 | PC.NURSE ---
pt refused ct scan @ this time
[2021-11-18 23:36] LABS: Basophils # 0.1 K/mm3 (0-0.2); Basophils % 1.4 % (0.1-2.0); Eosinophils # 0.1 K/mm3 (0.0-0.4); Eosinophils % 0.6 % (0.1-12.0); Hematocrit 55.1 % (42.0-52.0); Hemoglobin 17.6 g/dL (14.1-18.0); Lymphocytes # 2.1 K/mm3 (0.7-4.5); Lymphocytes % 23.6 % (10-50); Mean Corpuscular Hemoglobin 31.8 pg (27.0-31.2); Mean Corpuscular Volume 99.6 fl (80-94); Mean Platelet Volume 10.7 fl (7.4-10.4); Monocytes # 0.4 K/mm3 (0.1-1.0); Monocytes % 4.8 % (1.7-9.3); Neutrophils % 69.6 % (37.0-80.0); Platelet Count 279 K/mm3 (142-424); Red Blood Count 5.53 M/mm3 (4.60-6.20); Red Cell Distribution Width 13.1 % (11.5-17.5); White Blood Count 8.7 K/mm3 (4.8-10.8)
[2021-11-19 00:01] LABS: Erythrocyte Sedimentation Rate 9 mm/hr (0-15)
--- NOTE | 2021-11-19 00:04 | HMH.EDSKAF ---
ED Disposition Clinical Impression: Cellulitis Qualifiers: Site of cellulitis: extremity Site of cellulitis of extremity: lower extremity Laterality: right Qualified Code(s): L03.115 - Cellulitis of right lower limb Disposition: Home, Self-Care Condition on Discharge: Good Instructions: DI for Skin Abscess Additional Instructions: keep clean and use meds and see pcp on sunday and recheck if needed Prescriptions: clindamycin HCL [Cleocin HCl] 300 mg PO TID #30 cap Transmission Status: Pending to [facility] Minocycline HCl [Minocycline HCl 100mg Tab*] 100 mg PO BID #20 tab Transmission Status: Pending to [facility] Ketorolac Tromethamine [Toradol 10mg tablet] 10 mg PO Q6HP PRN #10 tab MDD 40mg/day PRN Reason: Moderate To Severe Pain Transmission Status: Pending to [facility] Referrals: Simone Srinivasan APRN [Primary Care Provider] - - Critical Care Critical Care Time: No Attestation: On 11/18/21, the high probability of a clinically significant, sudden or life threatening deterioration of the following system(s) required my full and direct attention, intervention and personal management. The time I documented below is in addition to time spent performing reported procedures but includes the following listed in this critical care notation. Medical Decision Making - Medical Records Medical records reviewed: Yes: I reviewed the patient's medical records. - Waldemar Inquiry Pt receiving controlled substance: No Vital Signs: 11/18/21 22:41 Temperature 98.4 F Temperature Source Oral Pulse Rate [Right] 81 Respiratory Rate 16 Blood Pressure [Right Arm] 143/94 H Blood Pressure Mean [Right Arm] 110 02 Sat by Pulse Oximetry 98 - Lab Data Lab results reviewed: Yes: I reviewed the patient's lab results. Lab Results 11/18/21 20:54: ESR 9 11/18/21 20:54: C-Reactive Protein 32.2 H, Procalcitonin 0.060 11/18/21 20:54: SARS-CoV-2 (PCR) Not detected, Influenza A Untype (PCR) Not detected, Influenza Type B (PCR) Not detected 11/18/21 20:54: WBC 8.7, RBC 5.53, Hgb 17.6, Hct 55.1 H, MCV 99.6 H, MCH 31.8 H, MCHC 32.0, RDW 13.1, Plt Count 279, MPV 10.7 H, Neut % (Auto) 69.6, Lymph % (Auto) 23.6, [place] % (Auto) 4.8, Eos % (Auto) 0.6, Baso % (Auto) 1.4, Neut # (Auto) 6.0, Lymph # (Auto) 2.1, [place] # (Auto) 0.4, Eos # (Auto) 0.1, Baso # (Auto) 0.1 11/18/21 20:54: Sodium 138, Potassium 3.7, Chloride 98, Carbon Dioxide 36 H, Anion Gap 7.7, BUN 8 L, Creatinine 1.00, Estimated Creat Clear 136, Estimated GFR 87, Est GFR ( Amer) 105, Glucose 97, Calcium 9.5, Total Bilirubin 0.5, AST 22, ALT 18, Alkaline Phosphatase 93, Total Protein 7.7, Albumin 4.4, Globulin 3.3 H, Albumin/Globulin Ratio 1.3 11/18/21 20:54: Lactate 1.4 Result diagrams: 11/18/21 20:54 11/18/21 20:54 Orders (Tests/Meds): ED MEDICATIONS Generic Name Dose Route Start Last Admin Trade Name Freq PRN Reason Stop Dose Admin Sodium Chloride 1,000 mls @ 999 mls/hr 11/18/21 23:00 11/18/21 22:59 Sod Chlor 0.9% 1000ml Bag IV 11/19/21 00:00 999 mls/hr .Q1H1M KWAN Administration Discontinued Medications Generic Name Dose Route Start Last Admin Trade Name Freq PRN Reason Stop Dose Admin Ketorolac Tromethamine 30 mg 11/18/21 22:52 11/18/21 22:59 Ketorolac 30mg/Ml Vial IV 11/18/21 22:53 30 mg ONCE ONE Administration Methylprednisolone Sodium Succinate 125 mg 11/18/21 22:52 11/18/21 22:59 Methylprednisolone Sod Succ 125mg Vial IV 11/18/21 22:53 125 mg ONCE ONE Administration ORDERS Category Date Time Status CT ankle RT w con Stat Cat Scan 11/18/21 22:55 Ordered UDS [Drug Screen,Urine] Stat Lab 11/18/21 22:55 Ordered Blood Culture Stat Micro 11/18/21 20:54 Received Wound Culture and Gram Stain Stat Micro 11/18/21 22:52 Received Medical Decision Narrative: pt with prob mrsa at ankle - will do culture and try as op at this time - Skin/Abscess/FB HPI - General Chief complai
--- NOTE | 2021-11-19 00:16 | PC.NURSE ---
Called [facility] for Vancomycin dosing, s/w Tamiko and she will place order in [facility]AN for Vasquez
--- NOTE | 2021-11-19 02:12 | PC.NURSE ---
Patient is resting comfortably in bed. Vancomycin is continuing to infuse. Patient will be ready for discharge upon completion of iv antibiotics.
[2021-11-19 02:33] VITALS: BP 143/94; PULSE 83; RESP 20; TEMP 36.7; O2SAT 98
== END 2021-11-19 02:35 | disposition home or self-care (01) ==
PROVIDERS: Emergency Provider Emergency Medicine; PCP Nurse Practitioner Family
DX: S90.561A Insect bite (nonvenomous), right ankle, initial encounter (principal); L03.115 Cellulitis of right lower limb; W57.XXXA Bitten or stung by nonvenomous insect and other nonvenomous arthropods, initial encounter; I10 Essential (primary) hypertension; J45.909 Unspecified asthma, uncomplicated; F17.210 Nicotine dependence, cigarettes, uncomplicated
CPT/HCPCS: 80053; 83605; 84145; 85025; 85651; 86140; 87040; 87070; 87077; 87186; 87205; 96365; 96366; 96375; 99283; C9803; U0003; U0005

== ENCOUNTER 2022-05-26 16:42 | Emergency (ER) | payer MEDICAID, SELFPAY ==
[2022-05-26 16:43] VITALS: BP 131/72; PULSE 103; RESP 16; TEMP 36.6; O2SAT 98; BMI 23.0
[2022-05-26 17:00] VITALS: BP 140/77; PULSE 101; RESP 17; O2SAT 99
--- NOTE | 2022-05-26 17:04 | PC.NURSE ---
ED MD AT BEDSIDE FOR EVALUATION
--- NOTE | 2022-05-26 17:05 | HMH.EDSKAF ---
ED Disposition Clinical Impression: Cellulitis of buttock, right Disposition: Home, Self-Care Condition on Discharge: Fair Instructions: Cellulitis Additional Instructions: Take [id number] Motrin for your pain. Take all medications as prescribed. Return to the emergency department immediately if you feel worse in any way. Follow-up with your primary care doctor in about 4 to 5 days if not better. Prescriptions: Hydrocod/Acet 5/325 mg [Pyote 5/325mg tablet] 1 tab PO Q6HP PRN #4 tab PRN Reason: Pain Transmission Status: Sent to [facility] Sulfamethoxazole/Trimethoprim [Bactrim DS tablet] 2 each PO BID #40 tab Transmission Status: Pending to [facility] cephALEXin [Cephalexin 500mg Tab] 500 mg PO Q6H #40 tab Transmission Status: Pending to [facility] Referrals: Simone Srinivasan APRN [Primary Care Provider] - - Critical Care Critical Care Time: No Attestation: On , the high probability of a clinically significant, sudden or life threatening deterioration of the following system(s) required my full and direct attention, intervention and personal management. The time I documented below is in addition to time spent performing reported procedures but includes the following listed in this critical care notation. Medical Decision Making - Waldemar Inquiry Pt receiving controlled substance: Yes Waldemar was queried for this patient: Yes Risks and benefits of using a controlled substance: were discussed with pt by me Medical Decision Narrative: The patient's physical exam is consistent with cellulitis versus an early abscess. The patient will be discharged with a prescription for antibiotics to be taken as an outpatient and to follow-up with his primary care doctor if not better in a few days. Skin/Abscess/FB HPI - General Stated complaint: spot on R Hip Time Seen by Provider: 05/26/22 17:06 Mode of Arrival: Ambulatory - History of Present Illness HPI narrative: The patient presents to the emergency department complaining of a tender area on his right buttocks. This has been ongoing for few days. He has had symptoms like this before. He has no other complaints. - Related Data Previous Rx's Medication Instructions Recorded blood sugar diagnostic See Rx Instructions .ROUTE 01/26/22 .COMPLEX #100 each lancets 30 gauge and blood glucose See Rx Instructions .ROUTE 01/26/22 strips combo pack .MEDSUPPLY #100 each blood-glucose meter See Rx Instructions .ROUTE 02/07/22 .MEDSUPPLY #1 each fluticasone 250 mcg-salmeterol 50 1 inh INHALATION BID #60 each 02/07/22 mcg/dose blistr powdr for inhalation fluticasone propionate 50 1 spray INTRANASAL DAILY #16 g 02/07/22 mcg/actuation nasal spray,suspension gabapentin 300 mg capsule 300 mg PO TID #90 cap 02/07/22 loratadine 10 mg tablet 10 mg PO DAILY PRN #90 tab 02/07/22 albuterol sulfate 90 mcg/actuation See Rx Instructions .ROUTE 05/24/22 aerosol inhaler .COMPLEX #8.5 g hydrochlorothiazide 25 mg tablet See Rx Instructions .ROUTE 05/24/22 .COMPLEX #90 tab Hydrocod/Acet 5/325 mg [Pyote 1 tab PO Q6HP PRN #4 tab 05/26/22 5/325mg tablet] Sulfamethoxazole/Trimethoprim 2 each PO BID #40 tab 05/26/22 [Bactrim DS tablet] cephALEXin [Cephalexin 500mg Tab] 500 mg PO Q6H #40 tab 05/26/22 Allergies Allergy/AdvReac Type Severity Reaction Status Date / Time aspirin Allergy Verified 11/22/21 15:46 codeine Allergy Verified 11/22/21 15:46 Penicillins Allergy Verified 11/22/21 15:46 [facility] History - Hepatitis A Screen Drug use history?: No Attestation statement:: This patient has been screened for Hepatitis A risk factors. I have reviewed the patient's past medical history: No Medical History: Reports:: Asthma, Hypertension Other Surgeries: Yes: Appendectomy, Cholecystectomy - Social History Smoking Status: Current every day smoker Tobacco Type: cigarettes # Packs/Day (cigarettes): 1 Alcohol Intake:
--- NOTE | 2022-05-26 17:13 | PC.NURSE ---
PT REQUESTING TO SPEAK WITH MD, ED MD AT BEDSIDE
[2022-05-26 17:55] VITALS: BP 129/74; PULSE 87; RESP 16; TEMP 36.6; O2SAT 98
== END 2022-05-26 17:57 | disposition home or self-care (01) ==
PROVIDERS: Emergency Provider Emergency Medicine; PCP Nurse Practitioner Family
DX: L03.317 Cellulitis of buttock (principal); Z88.6 Allergy status to analgesic agent; Z88.0 Allergy status to penicillin; I10 Essential (primary) hypertension; J45.909 Unspecified asthma, uncomplicated; Z90.49 Acquired absence of other specified parts of digestive tract
CPT/HCPCS: 99282

== ENCOUNTER 2022-06-09 07:34 | Emergency (ER) | payer SELFPAY ==
[2022-06-09 07:36] VITALS: BP 128/80; PULSE 104; RESP 16; TEMP 37.1; O2SAT 98; BMI 23.1
--- NOTE | 2022-06-09 07:51 | XR_ITS ---
FINAL REPORT CLINICAL HISTORY: fall, pain and swelling FINDINGS: AP, oblique, and lateral views of the right knee were obtained. There is no acute fracture or dislocation. Joint spaces preserved. Soft tissues are normal. IMPRESSION: No acute osseous abnormality of the right knee. Reviewed, Interpreted and Dictated by Jennifer Claire MD Transcribed by Ryan Tello Authenticated and [facility]
--- NOTE | 2022-06-09 07:52 | XR_ITS ---
FINAL REPORT CLINICAL HISTORY: fall, pain and swelling FINDINGS: AP, oblique, and lateral views of the right ankle were obtained. There is no prior exam for comparison. There is no fracture or dislocation. The ankle mortise is intact. There is a calcification adjacent to the medial talus which is likely chronic. Soft tissues are normal. IMPRESSION: No acute osseous abnormality of the right ankle. Reviewed, Interpreted and Dictated by Jennifer Claire MD Transcribed by Ryan Tello Authenticated and [facility]
--- NOTE | 2022-06-09 07:52 | XR_ITS ---
FINAL REPORT CLINICAL HISTORY: fall, pain and swelling FINDINGS: AP, oblique and lateral views of the right foot were obtained. There is no prior exam for comparison. There is no acute fracture or dislocation. The joint spaces are preserved. Soft tissues are normal. IMPRESSION: No acute osseous abnormality of the right foot. Reviewed, Interpreted and Dictated by Jennifer Claire MD Transcribed by Ryan Tello Authenticated and [facility]
--- NOTE | 2022-06-09 07:55 | PC.NURSE ---
pt given warm blanket. S.O. AT BEDSIDE
[2022-06-09 08:00] VITALS: BP 129/92; PULSE 90; RESP 18; O2SAT 98
--- NOTE | 2022-06-09 08:05 | PC.NURSE ---
CALLED [facility] TO INFORMED THEM OF ORDERS
--- NOTE | 2022-06-09 08:09 | HMH.EDGENADL ---
ED Disposition Clinical Impression: Right knee sprain Qualifiers: Encounter type: initial encounter Involved ligament of knee: unspecified ligament Qualified Code(s): S83.91XA - Sprain of unspecified site of right knee, initial encounter Right ankle sprain Qualifiers: Encounter type: initial encounter Involved ligament of ankle: unspecified ligament Qualified Code(s): S93.401A - Sprain of unspecified ligament of right ankle, initial encounter Right foot sprain Qualifiers: Encounter type: initial encounter Qualified Code(s): S93.601A - Unspecified sprain of right foot, initial encounter Disposition: Home, Self-Care Condition on Discharge: Good Instructions: How to Use Crutches, DI for Knee Sprain, DI for Ankle Sprain, How to Use a Knee Immobilizer, DI for Foot Sprain Additional Instructions: Crutches, knee immobilizer, ankle brace until seen by orthopedics. Ice 20 minutes 4 times a day, elevate extremity. Sitting job only until seen by orthopedics. Follow-up with orthopedics, Dr. Rouse, call for appointment. Additional instructions for CONTROLLED SUBSTANCES: You have been prescribed a medication that is a controlled substance. Controlled substances include pain medications known as opiates and sedative nerve medications known as benzodiazepines. Tramadol, fioricet, and gabapentin are also controlled substances. Some common opiates include: Codeine (such as Tylenol #3) Hydrocodone (Vicodin, Lortab, Lorcet, Holcomb) Oxycodone (Percocet, Percodan, Oxycodone, Oxy IR) Some common benzodiazepines include: Diazepam (Valium) Lorazepam (Ativan) Alprazolam (Xanax) Clonazepam (Klonopin) Oxazepam (Serax) All of these controlled substances are highly addictive and frequently abused. Misuse can and frequently does lead to addiction as well as overdose and . Medication should be stored in a locked cabinet or other secure storage unit. Do not store the medication in a motor vehicle. Short term supplies, 3 days or less, are prescribed because of the highly addictive nature of the medication. Any of the controlled substance medication NOT taken should be disposed of properly and NOT SAVED. The recommended method of disposing of unused medications is: Place the medicines in a sealable plastic bag. If the medicine is a solid, crush it or add water to dissolve it. Add something undesirable (cat litter, coffee grounds, etc.) Dispose of sealed bag in household trash Do not flush or pour unused medicines down a sink or drain. Controlled substances should not be shared, given away or sold. Because of the addictive nature and frequent abuse, these medications are sometimes stolen. These medications should be kept in a safe place where they cannot be stolen. Do not keep them in your car or purse. Lost or stolen prescriptions for controlled substances WILL NOT BE REFILLED in this emergency department, regardless of whether a police report was filed. Prescriptions: Oxycodone HCl/Acetaminophen [Percocet 5/325mg tablet] 1 tab PO Q6HP PRN #6 tab PRN Reason: Moderate To Severe Pain Transmission Status: Received by [facility] Ibuprofen [Ibuprofen 800mg Tablet] 800 mg PO Q8HP PRN #20 tab PRN Reason: Moderate Pain Transmission Status: Received by [facility] Referrals: Simone Srinivasan APRN [Primary Care Provider] - Timothy Rouse JR, MD [Physician] - Forms: Work/School Release - Critical Care Critical Care Time: No Attestation: On 06/09/22, the high probability of a clinically significant, sudden or life threatening deterioration of the following system(s) required my full and direct attention, intervention and personal management. The time I documented below is in addition to time spent performing reported procedures but includes the following listed in this critical care notation. Medical Decision Making - Waldemar Inquiry Pt receiving controlled substance: Yes Waldemar was queried fo
--- NOTE | 2022-06-09 08:09 | PC.NURSE ---
PT TO XRAY PER WHEELCHAIR
--- NOTE | 2022-06-09 08:23 | PC.NURSE ---
pt returned from xray per wheelchair. pt given ice packs for knee and ankle
--- NOTE | 2022-06-09 08:25 | PC.NURSE ---
pt RLE elevated on pillow at this time, pt has ice packs at BS, asked if I could help him position them on extremity for comfort, pt declined. will continue to monitor family at BS
[2022-06-09 09:03] VITALS: BP 132/87; PULSE 78; RESP 16; TEMP 36.6; O2SAT 98
== END 2022-06-09 09:05 | disposition home or self-care (01) ==
PROVIDERS: Emergency Provider Emergency Medicine; PCP Nurse Practitioner Family
DX: S83.91XA Sprain of unspecified site of right knee, initial encounter (principal); S93.401A Sprain of unspecified ligament of right ankle, initial encounter; S93.601A Unspecified sprain of right foot, initial encounter; I10 Essential (primary) hypertension; J45.909 Unspecified asthma, uncomplicated; F17.210 Nicotine dependence, cigarettes, uncomplicated; Z79.1 Long term (current) use of non-steroidal anti-inflammatories (NSAID); Z79.51 Long term (current) use of inhaled steroids; Z79.899 Other long term (current) drug therapy; Z88.0 Allergy status to penicillin; Z88.5 Allergy status to narcotic agent; Z88.6 Allergy status to analgesic agent; W01.0XXA Fall on same level from slipping, tripping and stumbling without subsequent striking against object, initial encounter
CPT/HCPCS: 73562; 73610; 73630; 99285

== ENCOUNTER 2022-06-20 11:15 | Outpatient (RCR) | payer SELFPAY | END 2022-06-20 12:15 | disposition home or self-care (01) | LOC: PT 11:15 | PROVIDERS: Visit Provider Physician Assistant | DX: S93.401D Sprain of unspecified ligament of right ankle, subsequent encounter (principal); S83.91XD Sprain of unspecified site of right knee, subsequent encounter | CPT/HCPCS: 97760 ==

== ENCOUNTER 2022-06-21 15:57 | Emergency (ER) | payer SELFPAY ==
[2022-06-21 15:59] VITALS: BP 116/76; PULSE 73; RESP 16; TEMP 36.6; O2SAT 97; BMI 26.5
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
[2022-06-21 16:18] VITALS: BP 116/74; PULSE 73; RESP 16; TEMP 36.6; O2SAT 97
== END 2022-06-21 16:20 ==
PROVIDERS: Emergency Provider Emergency Medicine; PCP Nurse Practitioner Family
DX: Z02.89 Encounter for other administrative examinations (principal)
CPT/HCPCS: 99281

== ENCOUNTER → 2022-11-30 12:00 | Outpatient (CLI) | payer MEDICAID, SELFPAY ==
[2022-11-30 15:04] LABS: Alanine Aminotransferase 18 U/L (12-78); Albumin Level 4.6 g/dl (3.5-5.0); Albumin/Globulin Ratio 1.6 (1.1-1.8); Alkaline Phosphatase 87 U/L (38-126); Anion Gap 12.4 mEq/L (5-15); Aspartate Amino Transferase 25 U/L (17-59); Bilirubin,Total 0.5 mg/dl (0.2-1.3); Blood Urea Nitrogen 6 mg/dl (9-20); Calcium 9.3 mg/dl (8.4-10.2); Carbon Dioxide 29 mmol/L (22.0-30.0); Chloride 101 mmol/L (98-107); Chol/HDL Ratio 3.2 (1-3.5); Cholesterol 130 mg/dl (140-200); Estimated Glomerular Filt Rate 97 ml/min (>60); GFR (African American) 118 ML/MIN (>60); Globulin 2.9 g/dL (1.3-3.2); Glucose 97 mg/dl (74-100); HDL Cholesterol 41 mg/dl (40-60); Potassium 4.4 mmoL/L (3.5-5.1); Sodium 138 mmol/L (136-145); Total Protein,Serum 7.5 g/dl (6.3-8.2); Triglycerides 214 mg/dl (30-150); VLDL Cholesterol 43 mg/dL (0-40)
[2022-11-30 15:07] LABS: Basophils # 0.1 K/mm3 (0-0.2); Basophils % 1.3 % (0.1-2.0); Eosinophils # 0.1 K/mm3 (0.0-0.4); Eosinophils % 0.9 % (0.1-12.0); Hematocrit 49.8 % (42.0-52.0); Hemoglobin 17.5 g/dL (14.1-18.0); Lymphocytes # 2.1 K/mm3 (0.7-4.5); Mean Corpuscular HGB Conc 35.2 g/dL (31.8-35.4); Mean Corpuscular Hemoglobin 33.2 pg (27.0-31.2); Mean Corpuscular Volume 94.1 fl (80-94); Mean Platelet Volume 10.5 fl (7.4-10.4); Monocytes # 0.4 K/mm3 (0.1-1.0); Monocytes % 5.9 % (1.7-9.3); Neutrophils % 59.9 % (37.0-80.0); Platelet Count 250 K/mm3 (142-424); Red Blood Count 5.29 M/mm3 (4.60-6.20); Red Cell Distribution Width 12.8 % (11.5-17.5); White Blood Count 6.6 K/mm3 (4.8-10.8)
[2022-11-30 15:33] LABS: Thyroid Stimulating Hormone 1.04 uIU/mL (0.465-4.68)
== END ==
PROVIDERS: PCP Nurse Practitioner Family; Visit Provider Nurse Practitioner Family
DX: R53.83 Other fatigue (principal)
CPT/HCPCS: 80053; 80061; 84443; 85025